=== PATIENT | male | born 1970 | race Caucasian/White ===

== ENCOUNTER → 2024-06-21 | Outpatient (CLI) | payer OTHER ==
[~2024-06-21] MED LIST: HYDACE5325 PO; NAPR500 PO
[2024-06-23 10:11] LABS: HIV 1,2 COMBO ANTIGEN/ANTIBODY Negative (Negative)
[2024-06-23 10:17] LABS: HEPATITIS B SURFACE ANTIGEN Negative (Negative)
[2024-06-23 14:36] LABS: HEPATITIS C AB CIA INTERP Negative (Negative); HEPATITIS C ANTIBODY CIA INDEX 0.04 IV
== END ==
LOC: LAB 13:40 → LAB SHORT 13:40
PROVIDERS: Physician Assistant
DX: Z77.21 Contact with and (suspected) exposure to potentially hazardous body fluids (principal)
CPT/HCPCS: 86803; 87340; 87389